=== PATIENT | female | born 1965 | race Caucasian/White ===

== ENCOUNTER → 2017-01-05 | Outpatient (CLI) | payer MEDICARE, OTHER ==
--- NOTE | 2017-01-05 19:26 | CONS ---
DATE OF CONSULTATION: 01/05/2017 This patient is a 51-year-old lady who has been evaluated in the sleep center for sleep problems. The patient has problems with falling asleep and also she has multiple awakenings from sleep with episodes of nightmares. HISTORY OF PRESENT ILLNESS/SLEEP-WAKE EVALUATION: Patient's usual sleep schedule is from 9 or 10 p.m. until 3 a.m., when she wakes up and stays in the living room watching TV. Patient has problems with falling asleep. She is at present on treatment with Ambien 10 mg at bedtime. She had a sleep study done about 14 years ago, and at that time no significant respiratory abnormalities were found, but since that time she significantly increased to her weight. For the last several months, she increased her weight by about 30 pounds. She has a TV set in the bedroom. She usually sleeps on the side position. Wakes up from sleep up to 5 times with 5 episodes of nocturia. Sometimes she may start to see her dreams right away, closing her eyes. No history of sleep paralysis or cataplexy. [place] Sleepiness Scale is 7. During sleep, she wakes up with a dry mouth, panic attack, heartburn. In the morning she wakes up tired, has problems with memory, concentration, irritability, depression, anxiety, worries about her sleep. Past medical history is positive for: 1. Bipolar. 2. Manic depression. 3. Fibromyalgia. 4. Back problem. 5. Neck problems. PAST SURGICAL HISTORY: 1. Total hysterectomy. 2. Urinary bladder stimulator insertion. 3. Colon surgery for obstruction with resection of part of the colon, according to patient. MEDICATIONS: 1. Gabapentin. 2. Lyrica. 3. Hormone replacement therapy. REVIEW OF SYSTEMS: Difficulties to initiate sleep. Multiple awakenings from sleep. No fevers. No double vision. No recent chest pain. No shortness of breath. No abdominal pain. No bleeding episodes. No blood in urine. No seizure episodes. Significantly increasing weight for the last several months. SOCIAL HISTORY: On and off smoker. Alcohol consumption occasional. FAMILY HISTORY: Hypertension, heart problems, hyperlipidemia, fibromyalgia, arthritis, asthma, sinus headaches, weakness when excited, bronchitis, lung problems, emphysema, headaches, cancer, insomnia, acid reflux, diabetes, thyroid problems, during sleep, mental illness. PHYSICAL EXAMINATION: GENERAL: A pleasant 51-year-old lady without distress. VITAL SIGNS: BP 138/90, HR 75, RR 16. Height 5 feet 5-1/2 inches, weight 206. BMI 33.7. Neck 16 inches in circumference. Temperature 97.2. HEENT: PERRLA, EOMI. Evaluation of oropharynx showed tongue protrudes midline; low position of soft palate, small oropharyngeal air space, slight restriction of nasal breathing. NECK: Supple. No JVD. Thyroid is not palpable. LUNGS: Clear to percussion and to auscultation. Good air exchange. No wheezing or rhonchi. HEART: S1, S2 regular. No murmurs, gallops or rubs. ABDOMEN: Obese. EXTREMITIES: No clubbing or cyanosis. RN PEDIATRIC: Awake, alert, and oriented x3. Cranial nerves 2 to 7 intact. There is no fasciculation or atrophy noted. No focal deficits observed. IMPRESSION: 1. Small oropharyngeal air space, multiple awakenings from sleep with nocturia, feeling tiredness in the morning, increasing weight significantly; possible obstructive sleep apnea/hypopnea syndrome. 2. Difficulties in initiating sleep. TV in bedroom. Psychophysiological insomnia and insomnia secondary to bipolar disorder. 3. Bipolar. 4. Manic depression. 5. History of fibromyalgia. 6. Back arthritis. 7. Neck problems. 8. Status post neck surgery. 9. Status post total hysterectomy. 10. Night terrors. 11. Status post urinary bladder stimulator. 12. Status post colon resection for obstruction. PLAN: 1. Polysomnography for evaluation of patient's breathing during sleep. 2. CPAP/BiPAP titration if sleep study confirms obstructive sleep apnea-hypopnea syndrome. 3. Preferable position during sleep on the side. 4. No driving if patient feels any sleepiness. Patient is aware of civil and criminal liability for unsafe driving. 5. I will see patient for follow-up visit to explain results of the testing and following plan. 6. Stimulus control. 7. Paradoxical intention. 8. Worry time for treatment of insomnia. 9. Prescription for Ambien 10 mg at bedtime, which patient takes at present, and according to her she cannot fall asleep at all without Ambien. Prescription for one month ( ) before we do the sleep study. Thank you very much for referring this patient for consultation. Sincerely, Sebastian Bynum MD, PhD, FAASM. Diplomat of [place] [employer], Sleep Medicine Board by [place] [employer] [place] [employer] Anesthesia Tech of [facility]
== END | disposition home or self-care (01) ==
LOC: SLEEP 14:26
PROVIDERS: ATTEND Internal Medicine
DX: G47.33 Obstructive sleep apnea (adult) (pediatric) (principal); E66.9 Obesity, unspecified; Z68.33 Body mass index [BMI] 33.0-33.9, adult; F31.9 Bipolar disorder, unspecified; M79.7 Fibromyalgia; M47.9 Spondylosis, unspecified; F51.4 Sleep terrors [night terrors]; F17.200 Nicotine dependence, unspecified, uncomplicated; Z90.710 Acquired absence of both cervix and uterus; Z79.899 Other long term (current) drug therapy
CPT/HCPCS: 99211

== ENCOUNTER → 2017-05-18 | Outpatient (CLI) | payer MEDICARE, OTHER ==
--- NOTE | 2017-05-19 15:28 | PN ---
DATE OF SERVICE: 05/18/217 This patient is a 51-year-old lady who has been followed in the sleep center. She is here to discuss results of her polysomnogram and possible plan of treatment. We discussed the results of the polysomnogram in detail. No significant respiratory abnormalities. Total apnea/hypopnea index only 1.4. No significant oxygen desaturation. Sleep efficiency was practically normal at 81%. Latency to sleep onset was increased to 60.9 minutes. [place] Sleepiness Scale today is 0. The patient reported that she continued to have problems with falling asleep. MEDICATIONS: 1. Ambien 10 mg. 2. Metoprolol. 3. Gabapentin. 4. Montelukast. 5. Clonazepam 2 mg. 6. Metaxalone. 7. Flexeril. 8. Prilosec. 9. Quetiapine. PHYSICAL EXAM: The patient is a pleasant 51-year-old lady without distress. VITAL SIGNS: Blood pressure 135/88, heart rate 69, respiratory rate 16. Temperature 98.6. Height 65. Weight 192.8. BMI 32.1. Oxygen saturation at room air 97%. GENERAL: A pleasant patient without distress. HEENT: PERRLA. EOMI. Evaluation of oropharynx showed tongue protrudes midline. Low position of soft palate. NECK: Supple. No JVD. Thyroid is not palpable. LUNGS: Clear to percussion and to auscultation. Good air exchange. No wheezing or rhonchi. HEART: S1, S2 regular. No murmurs, gallops or rubs. ABDOMEN: Slightly obese. EXTREMITIES: No clubbing or cyanosis. MANAGER OF PROJECT MANAGEMENT: Awake, alert and oriented x3. Cranial nerves 2 through 7 are intact. There is no fasciculation or atrophy noted. No focal deficits observed. IMPRESSION: 1. No significant respiratory abnormalities have been documented during the sleep study. 2. Normal sleep efficiency during the sleep test while patient was on her medication. 3. Insomnia, psychophysiological and related to her mood disorders. 4. History of bipolar disorder. 5. History of depression. 6. Status post pacemaker insertion for bladder. 7. Back problem. 8. Status post neck surgery. 9. History of fibromyalgia. PLAN: 1. I discussed psychophysiological techniques for treatment of insomnia with the patient, including stimulus control, paradoxical intention, worry time. She should not look at the clock in the bedroom. She should not have a TV in the bedroom. 2. Sleep hygiene with regular time in bed for at least 7-1/2 hours. 3. As much as possible, exposure to the sunlight in the morning. 4. No driving if feeling any sleepiness. 5. Preferable position during sleep on the side. 6. Watching and losing weight. Thank you very much for allowing me to participate in the management of your patient. Sincerely, Sebastian Bynum. , PhD, FAASM. Diplomat of [place] [employer], Sleep Medicine Board by [place] [employer] [place] [employer] Maintenance Plumber of [facility] [place] [facility]
== END ==
LOC: SLEEP 15:04
PROVIDERS: ATTEND Internal Medicine
DX: G47.00 Insomnia, unspecified (principal); Z98.890 Other specified postprocedural states; Z79.899 Other long term (current) drug therapy

== ENCOUNTER → 2017-12-28 | Outpatient (CLI) | payer MEDICARE ==
--- NOTE | 2017-12-28 16:15 | PN ---
PROGRESS NOTE DATE OF SERVICE: 12/28/2017 52-year-old lady has been followed in Sleep Center for treatment of insomnia. Previously, she had a sleep study which showed no abnormalities of respiration during the sleep and no significant leg movements during the night. Presently, patient continued to have problem with falling asleep and also she has some nightmares at night and also she has night terrors. She is taking clonazepam at bedtime and that helps skill for her night terrors. She also was treated with Ambien at bedtime 10 mg and that helps her to fall asleep, but she still wakes up in the second part of the night. She believes that medication does not work long enough for her. [place] Sleepiness Scale today is 0. PHYSICAL EXAM: GENERAL Patient in no distress. VITAL SIGNS BP 103/65, HR 77, RR 18, height 5 and 5, weight 183.2, BMI 34, temperature 97, oxygen saturation room air 96%. HEENT PERRLA, EOMI, evaluation of oropharynx showed moderately low position of soft palate NECK Supple, no JVD. Thyroid is not palpable. LUNGS Clear to percussion and to auscultation. Good air exchange. No wheezing or rhonchi. HEART S1, S2 regular. No murmurs, gallops, or rubs. ABDOMEN Soft and nontender. Bowel sounds are present. No organomegaly appreciated. EXTREMITIES No clubbing or cyanosis. CHINESE MEDICINE PRACTITIONER Awake, alert, and oriented X3. Cranial nerves 2 to 7 intact. There is no fasciculation or atrophy. noted. No focal deficits observed. IMPRESSION: 1. Psychophysiological insomnia and possibly insomnia secondary to anxiety. 2. History of bipolar. 3. History of depression. 4. Status post permanent pacemaker insertion to the bladder. 5. Back problems. 6. Status post neck surgery. 7. History of fibromyalgia. PLAN: 1. Patient will continue to use Ambien. We will change prescription from regular Ambien to Ambien CR. 2. Sleep hygiene with regular time in bed for at least 8 hours. 3. No driving if feeling sleepiness. 4. Preferable position during the sleep on the side. Thank you very much for allowing me to participate in management of your patient. Sincerely, Sebastian Bynum MD, PhD, FAASM Diplomat of [place] [employer] [place] [employer] Supervisor [employer] Workers of [facility] [place] MMODL / IJN: [id number] /
== END | disposition home or self-care (01) ==
LOC: SLEEP 14:23
PROVIDERS: ATTEND Internal Medicine
DX: F51.04 Psychophysiologic insomnia (principal); Z86.59 Personal history of other mental and behavioral disorders; Z96.0 Presence of urogenital implants; Z98.890 Other specified postprocedural states; Z87.39 Personal history of other diseases of the musculoskeletal system and connective tissue; Z79.899 Other long term (current) drug therapy

== ENCOUNTER 2018-03-15 14:44 | Emergency (ER) | payer MEDICARE ==
[2018-03-15 14:53] VITALS: BP 121/80; PULSE 108; RESP 20; TEMP 98.2
--- NOTE | 2018-03-15 15:41 | ED ---
Upper Extremity HPI - General Chief Complaint: Extremity Injury, Upper Stated Complaint: fall/hand pain Time Seen by Provider: 03/15/18 14:53 Source: patient, RN notes reviewed Mode of arrival: ambulatory Limitations: physical limitation - History of Present Illness Initial Comments: This is a 52-year-old female who presents to the emergency department with chief complaint of right hand pain. Patient reports a history of chronic neuropathy and weakness in the right arm since having a stroke in December. She states that she always has baseline pain in the right arm. She states that one week ago she fell in her apartment and landed on her right arm. She states that since that time her pain has increased. She states that she presented to the hospital in [place] where an x-ray was obtained of her shoulder. This was negative. Today, she states that most of her pain is in her right hand and right wrist. She states that she has noticed it has become swollen. She states that she does take ibuprofen and gabapentin. She states that she has taken morphine and [place] in the past. She states that she is unable to get in to see a neurologist until 4 months from now and she is trying to establish care with a pain management nurse practitioner. Patient requests to have pain medication while in the emergency department and demands to see a neurologist here. Patient also states that she has a history of blood clots and that she is currently on Xarelto. Denies fever, chills, chest pain, shortness of breath , abdominal pain, nausea or vomiting, constipation or diarrhea, dysuria or hematuria, numbness or tingling, headache or vision changes. - Related Data Previous Rx's Medication Instructions Recorded predniSONE 20 mg PO BID #8 tab 03/15/18 Allergies Allergy/AdvReac Type Severity Reaction Status Date / Time topiramate [From Topamax] Allergy Unknown Verified 03/15/18 14:53 ziprasidone [From Geodon] Allergy Unknown Verified 03/15/18 14:53 Review of Systems ROS Statement: Those systems with pertinent positive or pertinent negative responses have been documented in the HPI. ROS Other: All systems not noted in ROS Statement are negative. Past Medical History Past Medical History: CVA/TIA History of Any Multi-Drug Resistant Organisms: None Reported Past Psychological History: No Psychological Hx Reported Smoking Status: Current every day smoker Past Alcohol Use History: None Reported Past Drug Use History: None Reported General Exam - General Exam Comments Initial Comments: General: Awake and alert, well-developed; in no apparent distress. HEENT: Head atraumatic, normocephalic. Pupils are equal, round and reactive to light. Extraocular movements intact. Oropharynx moist without erythema or exudate. Neck: Supple. Normal ROM. Cardiovascular: Regular rate and rhythm. No murmurs, rubs or gallops. Chest symmetrical. Respiratory: Lungs clear to auscultation bilaterally. No wheezes, rales or rhonchi. Normal respiratory effort with no use of accessory muscles. Musculoskeletal: Patient unable to move the right upper extremity due to weakness. She is able to wiggle her fingers. This is normal for patient. There is generalized swelling and tenderness on palpation of the right hand and wrist. Sensation is intact. Radial pulses are 2+ equal and palpable bilaterally. Skin: [place], warm and dry without rashes or lesions. Neurological: Alert and oriented x3. CN II-XII grossly intact. Speech is fluent and answers are appropriate. No focal neuro deficits. Psychiatric: Normal mood and affect. No overt signs of depression or anxiety noted. Limitations: physical limitation Course Vital Signs 03/15/18 14:50 Temperature 98.2 F Pulse Rate 108 H Respiratory 20 Rate Blood Pressure 121/80 O2 Sat by Pulse 96 Oximetry Medical Decision Making - Medical Decision Making This is a 52-year-old female who presents to the emergency department with chief complaint of right hand and wrist pain. Patient states that she does have baseline neuropathy since a stroke in December. She does have weakness in the right arm. There is, what I suspect to be, dependent edema in the right hand. Patient states that she fell one week ago and has had an increase in her pain. She states that she believes it is related to nerve pain. X-ray was obtained and revealed no evidence for acute fractures or dislocations. She states that she is unable to get in to see a neurologist for four months. Patient already takes gabapentin, Motrin and was prescribed, according to [facility], Tramadol yesterday. Patient is displaying drug-seeking behavior and requests additional pain medication. Vital signs have been stable and patient is in no acute distress. I will provide patient with contact information for on-call neurologist. Patient will be started on short course of prednisone for neuropathic pain. She is in agreement with plan and voices understanding. All questions answered. - Radiology Data Radiology results: report reviewed Right hand and wrist x-ray impression: No fracture or dislocation. Disposition Clinical Impression: Right arm pain Disposition: HOME SELF-CARE Condition: Good Instructions: Peripheral Neuropathy (ED), Arm Pain (ED) Additional Instructions: Please take medications as prescribed. Please follow up with primary care provider within 1-2 days. Return to emergency department if symptoms should worsen or any concerns arise. Prescriptions: predniSONE 20 mg PO BID #8 tab Is patient prescribed a controlled substance at d/c from ED?: No Referrals: Ricardo Cunningham MD [Primary Care Provider] - 1-2 days Time of Disposition: 15:58
--- NOTE | 2018-03-15 15:43 | XR ---
Right hand and right wrist HISTORY: Pain, trauma 2 weeks prior, swelling 3 views of the right hand, 4 views of the right wrist are submitted. Bone mineralization, alignment are maintained. There is marginal spurring especially at the distal in terphalangeal joints consistent with osteoarthritic change. There is soft tissue swelling present. IMPRESSION: No fracture or dislocation.
[2018-03-15] MEDS ORDERED: predniSONE 50 MG TAB PO STA (15:55)
== END 2018-03-15 16:08 | disposition home or self-care (01) ==
LOC: EC 14:44
DX: M79.641 Pain in right hand (principal); M25.531 Pain in right wrist; G62.9 Polyneuropathy, unspecified; F17.200 Nicotine dependence, unspecified, uncomplicated; Z86.73 Personal history of transient ischemic attack (TIA), and cerebral infarction without residual deficits; Z88.8 Allergy status to other drugs, medicaments and biological substances; W19.XXXD Unspecified fall, subsequent encounter
CPT/HCPCS: 73110; 73130; 99283; J7512

== ENCOUNTER → 2019-01-10 | Outpatient (CLI) | payer MEDICARE ==
--- NOTE | 2019-01-10 18:07 | PN ---
PROGRESS NOTE DATE OF SERVICE: 01/10/2019 This patient is a 53-year-old lady who has been followed in Sleep Center for treatment of insomnia. The patient continues to take Ambien 10 mg at bedtime, and with this medication she is able to fall asleep well and she sleeps well. While she was in the [facility] several weeks ago, she was tried on treatment with doxepin at bedtime, but she did not sleep well at all. [place] Sleepiness Scale today is 1. Sleep study which was done about 2 years ago was negative for obstructive sleep apnea. Apnea-hypopnea index was 1.4, which is totally normal. MEDICATIONS: 1. Aspirin. 2. Duloxetine. 3. Flomax. 4. Furosemide. 5. Clonidine. PHYSICAL EXAMINATION: GENERAL: A pleasant patient in no distress. VITAL SIGNS: BP 169/87, HR 82, RR 16, height 5 feet 5 inches, weight 165 pounds. Body mass index 27.4, temperature 98.7, oxygen saturation at room air 96%. HEENT: PERRLA, EOMI. Evaluation of oropharynx showed tongue protrudes midline. NECK: Supple. No JVD. Thyroid is not palpable. LUNGS: Clear to percussion and to auscultation. Good air exchange. No wheezing or rhonchi. HEART: S1, S2 regular. No murmurs, gallops or rubs. ABDOMEN: Soft and nontender. Bowel sounds are present. No organomegaly. EXTREMITIES: No clubbing or cyanosis. NUTRITIONAL YEAST SUPERVISOR: Awake, alert, and oriented X3. Cranial nerves 2 to 7 intact. There is no fasciculation or atrophy. noted. No focal deficits observed. No side effects of Ambien or any problem related to Ambien. IMPRESSION: 1. Psychophysiological insomnia and possibly insomnia secondary to anxiety, on successful treatment with Ambien. 2. History of depression. 3. History of bipolar. 4. Status post pacemaker insertion to the bladder. 5. Back problems. 6. Status post neck surgery. 7. History of fibromyalgia. PLAN: 1. Patient will continue to take Ambien 10 mg at bedtime. 2. Sleep hygiene with regular time in bed for 7-1/2 to 8 hours. 3. No driving if feeling any sleepiness. 4. Stimulus control, paradoxical intention, worry time, no watching clock at night. 5. Preferable position during sleep on the side. Sincerely, Sebastian Stefadu, MD, PhD, FAASM Diplomat of [place] [employer] [place] [employer] [facility] [facility] [place] MMODL / LAURAN: [id number] /
== END ==
LOC: SLEEP 14:12
PROVIDERS: ATTEND Internal Medicine
DX: Z53.9 Procedure and treatment not carried out, unspecified reason (principal)